=== PATIENT | female | born 1965 | race Caucasian/White ===

== ENCOUNTER → 2021-10-30 | Outpatient (CLI) | payer OTHER ==
[2021-10-30 13:11] LABS: HEMOGLOBIN 13.7 gm/dl (12.3-15.3); RED BLOOD COUNT 4.59 M/UL (4.00-5.10); WHITE BLOOD COUNT 4.7 K/UL (4.5-11.0)
[2021-10-31 07:10] LABS: A/G RATIO 1.5 (1.2-2.2); ALKALINE PHOSPHATASE, S 118 IU/L (44-121); ALT (SGPT) 24 IU/L (0-32); AST (SGOT) 21 IU/L (0-40); BILIRUBIN, TOTAL 0.2 mg/dL (0.0-1.2); BUN 12 mg/dL (6-24); BUN/CREATININE RATIO 14 (9-23); CALCIUM, SERUM 9.2 mg/dL (8.7-10.2); CARBON DIOXIDE, TOTAL 25 mmol/L (20-29); CHLORIDE, SERUM 103 mmol/L (96-106); CHOLESTEROL, TOTAL 213 mg/dL (100-199); CREATININE, SERUM 0.84 mg/dL (0.57-1.00); EGFR IF AFRICN AM 90 (>59); EGFR IF NONAFRICN AM 78 (>59); GLOBULIN, TOTAL 2.7 g/dL (1.5-4.5); GLUCOSE, SERUM 105 mg/dL (65-99); HDL CHOLESTEROL 50 mg/dL (>39); LDL CHOLESTEROL CALC 122 mg/dL (0-99); LDL/HDL RATIO 2.4 ratio (0.0-3.2); POTASSIUM, SERUM 4.4 mmol/L (3.5-5.2); PROTEIN, TOTAL, SERUM 6.8 g/dL (6.0-8.5); SODIUM, SERUM 142 mmol/L (134-144); T. CHOL/HDL RATIO 4.3 ratio (0.0-4.4); TRIGLYCERIDES 235 mg/dL (0-149)
[2021-10-31 12:13] LABS: SJOGREN'S ANTI-SS-A <0.2 AI (0.0-0.9); SJOGREN'S ANTI-SS-B <0.2 AI (0.0-0.9)
[2021-10-31 13:13] LABS: C-REACTIVE PROTEIN, QUANT <1 mg/L (0-10); RHEUMATOID ARTHRITIS FACTOR <10.0 IU/mL (<14.0)
== END ==
LOC: LAB 12:25
PROVIDERS: Family Medicine Adolescent Medicine
DX: I10 Essential (primary) hypertension (principal); E78.5 Hyperlipidemia, unspecified; M25.50 Pain in unspecified joint; R68.2 Dry mouth, unspecified; E03.9 Hypothyroidism, unspecified
CPT/HCPCS: 36415; 80053; 80061; 82043; 84443; 84550; 85025; 85652; 86038; 86140; 86235; 86431

== ENCOUNTER 2022-01-31 21:48 | Emergency (ER) | payer OTHER ==
[2022-02-01 00:08] LABS: HEMOGLOBIN 12.6 gm/dl (12.3-15.3); RED BLOOD COUNT 4.19 M/UL (4.00-5.10); WHITE BLOOD COUNT 8.2 K/UL (4.5-11.0)
[2022-02-01 00:26] LABS: BUN/CREATININE RATIO 17 (0-10)
[2022-02-01] MEDS ORDERED: ZYRTEC10 MG PO (01:22)
[2022-02-01] MEDS ORDERED: PREDNISONE 20 M20 MG PO (01:22)
[2022-02-01] MEDS ORDERED: PEPCID20 MG PO (01:22)
[2022-02-01] MEDS ORDERED: EPIPEN 2-P0.3 MG/0.3 INJ (01:22)
== END 2022-02-01 01:32 | disposition home or self-care (01) ==
LOC: ER1 21:48
PROVIDERS: Physician Assistant
DX: R22.0 Localized swelling, mass and lump, head (principal); J02.9 Acute pharyngitis, unspecified; T42.6X5A Adverse effect of other antiepileptic and sedative-hypnotic drugs, initial encounter; I10 Essential (primary) hypertension; X58.XXXA Exposure to other specified factors, initial encounter
CPT/HCPCS: 80053; 85025; 96374; 99283; J2930